=== PATIENT | male | born 1980 | race African-American/Black ===

== ENCOUNTER 2017-07-03 09:43 | Emergency (ER) | payer SELFPAY ==
[~2017-07-03] VITALS: Ht 188 cm; Wt 107.0 kg
[~2017-07-03 09:43] MED LIST: BACT800T5 PO; CEPH-460 PO
[2017-07-03 09:45] VITALS: BP 142/80; PULSE 87; RESP 18; TEMP 98.7; O2SAT 100
[2017-07-03] MEDS ORDERED: FLUT1SPR5 EACH NARE (10:00)
[2017-07-03] MEDS ORDERED: AMOX875T PO (10:00)
[2017-07-03] MEDS ORDERED: RANI150T PO (10:00)
[2017-07-03] MEDS ORDERED: OMEP40CA2 PO (10:00)
--- NOTE | 2017-07-03 10:08 | PD ---
HPI Chief Complaint: GI Complaint Time Seen by Provider: 09:49 Travel History International Travel<30 days: No Contact w/Intl Traveler<30days: No Traveled to known affect area: No History of Present Illness HPI 36-year-old Afro-[place] male presents to the verge [facility] with sinus congestion, sore throat, and cough with posttussive emesis. Patient also relates a long history of reflux. He states he's gotten a severe sore throat over the weekend with increased congestion and headache. He denies fever, or chills. He states he does have vomiting with coughing, but he is not nauseous. He relates that he does sometimes gets food stuck in the throat wheeze never been evaluated for reflux in the past. No history of upper endoscopy. He takes Tums frequently. Pain in the throat is currently 9 out of 10. He denies ear pain. He denies diarrhea. He has no known drug allergies. PFSH Past Medical History Hx Anticoagulant Therapy: No Asthma: Yes Cardiovascular Problems: No Chemotherapy: No Cerebrovascular Accident: No Diabetes: No Diminished Hearing: No Respiratory: No Past Surgical History Abdominal Surgery: Yes (HERNIA REPAIR X 2 ) Social History Alcohol Use: Yes (OCC) Tobacco Use: Yes (one half a pack a day) Substance Use: No Allergies-Medications (Allergen,Severity, Reaction): Coded Allergies: No Known Allergies (Verified Adverse Reaction, Unknown, 07/03/17) Reported Meds & Prescriptions Reported Meds & Active Scripts Active Flonase Nasal Ingraham (Fluticasone Nasal Ingraham) 50 Mcg/Act Ingraham 100 Mcg EACH NARE BID Amoxicillin 875 Mg Tab 875 Mg PO BID 10 Days Ranitidine (Ranitidine HCl) 150 Mg Tab 150 Mg PO BID Omeprazole 40 Mg Cap 40 Mg PO DAILY Keflex (Cephalexin) 500 Mg Cap 500 Mg PO Q6H 10 Days Bactrim DS (Sulfamethoxazole-Trimethoprim) 800-160 Mg Tab 1 Tab PO BID 10 Days Review of Systems Except as stated in HPI: all other systems reviewed are Neg General / Constitutional: No: Fever Eyes: No: Visual changes HENT: No: Headaches Cardiovascular: No: Chest Pain or Discomfort Respiratory: No: Shortness of Breath Gastrointestinal: Positive: Vomiting, Dysphagia, Other (frequent heartburn.), No: Nausea, Diarrhea, Abdominal Pain, Indigestion, Loss of Appetite Genitourinary: No: Dysuria Musculoskeletal: No: Pain Skin: No Rash Neurologic: No: Weakness Psychiatric: No: Depression Endocrine: No: Polydipsia Hematologic/Lymphatic: No: Easy Bruising Physical Exam Narrative GENERAL: Patient appears in no obvious distress. SKIN: Warm and dry. Normal color. Normal turgor. HEAD: Atraumatic. Normocephalic. EYES: Pupils equal and round. No scleral icterus. No injection or drainage. ENT: No nasal bleeding or discharge. Mucous membranes pink and moist. TMs are somewhat dull bilaterally otherwise normal. No sinus tenderness to palpation. Posterior pharynx appears erythematous and inflamed, without exudate. Tonsils are not significantly inflamed. The patient does have somewhat hoarse voice. NECK: Trachea midline. Supple and nontender. CARDIOVASCULAR: Regular rate and rhythm. RESPIRATORY: No accessory muscle use. Clear to auscultation. Breath sounds equal bilaterally. GASTROINTESTINAL: Abdomen soft, mild epigastric tenderness, nondistended. Hepatic and splenic margins not palpable. No CVA tenderness. MUSCULOSKELETAL: Extremities without clubbing, cyanosis, or edema. No obvious deformities. NEUROLOGICAL: Awake and alert. No obvious cranial nerve deficits. Motor grossly within normal limits. Five out of 5 muscle strength in the arms and legs. Normal speech. PSYCHIATRIC: Appropriate mood and affect; insight and judgment normal. Data Data Last Documented VS Vital Signs Date Time Temp Pulse Resp B/P (MAP) Pulse Ox O2 Delivery O2 Flow Rate FiO2 07/03/17 09:45 98.7 87 18 142/80 (100) 100 MDM Medical Decision Making Medical Screen Exam Complete: Yes Emergency Medical Condition: Yes Differential Diagnosis Chronic reflux. Pharyngitis. Possible postnasal drip. Posttussive emesis. Narrative Course I feel the patient suffers from recurrent reflux which is probably causing all of his symptoms. I am treating with amoxicillin twice daily for 10 days for possible pharyngitis versus sinusitis. Patient also given Flonase nasal spray 2 sprays each nostril for nasal congestion. Patient was started on ranitidine 150 mg twice a day for 2 weeks. Patient also given omeprazole 40 mg daily #30 Patient should follow-up with local primary care physician as discussed. Work note is given for today. Patient should follow-up sooner if worsening symptoms develop. Diagnosis Primary Impression: Reflux esophagitis Additional Impressions: Pharyngitis Qualified Codes: J02.9 - Acute pharyngitis, unspecified Post-nasal drip Referrals: [facility] Patient Instructions: General Instructions Departure Forms: Work Release Enter return to work date: Jul 04, 2017 Additional Instructions: I feel the patient suffers from recurrent reflux which is probably causing all of his symptoms. I am treating with amoxicillin twice daily for 10 days for possible pharyngitis versus sinusitis. Patient also given Flonase nasal spray 2 sprays each nostril for nasal congestion. Patient was started on ranitidine 150 mg twice a day for 2 weeks. Patient also given omeprazole 40 mg daily #30 Patient should follow-up with local primary care physician as discussed. Work note is given for today. Patient should follow-up sooner if worsening symptoms develop. Med/Other Pt SpecificInfo: Prescription(s) given Scripts Fluticasone Nasal Ingraham (Flonase Nasal Ingraham) 50 Mcg/Act Ingraham 100 MCG EACH NARE BID for Allergies, #1 BOTTLE 0 Refills Prov: Margi Mensah DO 07/03/17 Amoxicillin (Amoxicillin) 875 Mg Tab 875 MG PO BID for Infection for 10 Days, #20 TAB 0 Refills Prov: Margi Mensah DO 07/03/17 Ranitidine (Ranitidine) 150 Mg Tab 150 MG PO BID for Heartburn Management, #30 TAB 0 Refills Prov: Margi Mensah DO 07/03/17 Omeprazole (Omeprazole) 40 Mg Cap 40 MG PO DAILY, #30 CAP 0 Refills Prov: Margi Mensah DO 07/03/17 Disposition: 01 DISCHARGE HOME Condition: Stable [place] Alfred Jul 03, 2017 10:08
== END 2017-07-03 10:30 | disposition home or self-care (01) ==
LOC: NEPD 09:43
DX: K21.0 Gastro-esophageal reflux disease with esophagitis (principal); J02.9 Acute pharyngitis, unspecified; R09.82 Postnasal drip; F17.200 Nicotine dependence, unspecified, uncomplicated
CPT/HCPCS: 99284